=== PATIENT | male | born 1995 | race Caucasian/White ===

== ENCOUNTER 2020-07-30 01:10 | Emergency (ER) | payer OTHER ==
[2020-07-30] MEDS ORDERED: [UNRECOGNIZED DRUG - OTHER] EYERT (03:34)
[2020-07-30] MEDS ORDERED: MOXIFLOXACIN EYERT (03:34)
[2020-07-30] MEDS ORDERED: NORCO 5-325 TA1 EACH PO (03:34)
== END 2020-07-30 03:40 | disposition home or self-care (01) ==
LOC: FER 01:10
DX: H10.9 Unspecified conjunctivitis (principal)
CPT/HCPCS: 99283

== ENCOUNTER 2021-03-20 18:12 | Emergency (ER) | payer OTHER ==
[~2021-03-20 18:12] MED LIST: MOXIFLOXACIN EYERT; NORCO 5-325 TA1 EACH PO; [UNRECOGNIZED DRUG - OTHER] EYERT
== END 2021-03-20 20:13 | disposition home or self-care (01) ==
LOC: FER 18:12
DX: S09.90XA Unspecified injury of head, initial encounter (principal); S01.111A Laceration without foreign body of right eyelid and periocular area, initial encounter; S00.83XA Contusion of other part of head, initial encounter; W55.22XA Struck by cow, initial encounter
CPT/HCPCS: 70450; 70486; 72125